=== PATIENT | male | born 1950 | race African-American/Black ===

== ENCOUNTER 2022-01-01 14:24 | Inpatient (IN) ==
[2022-01-01] MEDS ORDERED: ONDANSETRON 4 MG/2 ML VIAL ONE (14:40)
[2022-01-01] MEDS ORDERED: HEPARIN 5,000 UNIT/1 ML VIAL ONE ×2 (14:40→14:47)
[2022-01-01] MEDS ORDERED: MORPHINE 2 MG/1 ML SYRINGE ONE (14:40)
[2022-01-01] MEDS ORDERED: ASPIRIN EC 325 MG TABLET PO ONE (14:40)
[2022-01-01] MEDS ORDERED: fentaNYL 100 MCG/2 ML VIAL ONE (14:45)
[2022-01-01] MEDS ORDERED: HEPARIN/NACL 0.9% 2 UNITS/ML 2,000 UNIT/1,000 ML BAG IV ONE (14:45)
[2022-01-01] MEDS ORDERED: MIDAZOLAM 2 MG/2 ML VIAL ONE (14:45)
[2022-01-01] MEDS ORDERED: HEPARIN 5,000 UNIT/1 ML VIAL IV ONE (14:48)
[2022-01-01] MEDS ORDERED: MORPHINE 2 MG/1 ML SYRINGE IV STA (14:48)
[2022-01-01] MEDS ORDERED: ASPIRIN 325 MG TABLET PO STA (14:48)
[2022-01-01] MEDS ORDERED: ONDANSETRON 4 MG/2 ML VIAL IV STA (14:49)
[2022-01-01 14:56] LABS: Basophils # 0.1 10*3/uL (0.0-0.2); Basophils % 0.6 % (0.0-0.8); Eosinophils # 0.3 10*3/uL (0.0-0.87); Eosinophils % 3.2 % (0.00-10.9); Hematocrit 45.8 VOL% (42.0-52.0); Hemoglobin 14.4 GM/DL (14.0-18.0); Immature Granulocytes % 0.4 %; Immature Granulocytes Absolute 0.04 #; Lymphocytes # 2.3 10*3/uL (1.4-4.0); Lymphocytes % 24.9 % (21.2-54.2); Mean Corpuscular HGB Conc 31.4 GM/DL (32-36); Mean Corpuscular Volume 89.3 FL (87-102); Mean Platelet Volume 12.4 FL (9.6-12.0); Monocytes # 0.6 10*3/uL (0.11-0.8); Monocytes % 6.6 % (1.7-12.7); Neutrophils % 64.3 % (38.7-73.9); Platelet Count 188 T/CUMM (130-400); Red Blood Count 5.13 MC/CUMM (3.8-5.5); Red Cell Distribution Width 14.1 % (9.3-17.3); White Blood Count 9.3 T/CUMM (4-12)
[2022-01-01 15:03] LABS: Partial Thromboplastin Time 25.1 SECS (23.7-32.9)
[2022-01-01] MEDS ORDERED: hydrALAZINE 20 MG/1 ML VIAL ONE (15:11)
[2022-01-01] MEDS ORDERED: TICAGRELOR 90 MG TABLET ONE (15:19)
[2022-01-01 15:23] LABS: Albumin 3.6 G/DL (3.4-5.0); Bilirubin,Total 0.6 MG/DL (0.20-1.00); Calcium 8.9 MG/DL (8.5-10.1); Eosinophils 2 % (0-10); Lymphocytes 21 % (20-55); Osmolality,Calculated 285.3 MOS/KG (273-304); Platelet Estimate Normal; Potassium 4.8 MMOL/L (3.5-5.1); Total Cells Counted 100; Total Protein 7.6 G/DL (6.4-8.2)
[2022-01-01] MEDS ORDERED: ZALEPLON 5 MG CAPSULE PO PRN (15:27)
[2022-01-01] MEDS ORDERED: hydrALAZINE 20 MG/1 ML VIAL IV PRN (15:30)
[2022-01-01] MEDS ORDERED: amLODIPine 5 MG TABLET PO ONE (15:30)
[2022-01-01] MEDS ORDERED: MORPHINE 10 MG/1 ML VIAL ONE (15:36)
[2022-01-01] MEDS ORDERED: NITROGLYCERIN DRIP 50 MG/250 ML BOTTLE IV PRN (15:43)
[2022-01-01] MEDS ORDERED: MORPHINE 2 MG/1 ML SYRINGE IV PRN (15:44)
[2022-01-01] MEDS ORDERED: SODIUM CHLORIDE 0.9% 1,000 ML IV ONE (15:50)
[2022-01-01] MEDS: TICAGRELOR 90 MG TABLET PO SCH (20:30)
[2022-01-01] MEDS: ROSUVASTATIN 20 MG TABLET PO SCH (20:30)
[2022-01-01] MEDS: carvediloL 6.25 MG TABLET PO SCH (20:30)
[2022-01-02 03:42] LABS: Basophils % 0.4 % (0.0-0.8); Eosinophils % 0.5 % (0.00-10.9); Hematocrit 40.7 VOL% (42.0-52.0); Hemoglobin 13.3 GM/DL (14.0-18.0); Immature Granulocytes % 0.4 %; Immature Granulocytes Absolute 0.03 #; Lymphocytes # 1.4 10*3/uL (1.4-4.0); Lymphocytes % 17.5 % (21.2-54.2); Mean Corpuscular HGB Conc 32.7 GM/DL (32-36); Mean Corpuscular Volume 86.8 FL (87-102); Mean Platelet Volume 11.8 FL (9.6-12.0); Monocytes # 0.8 10*3/uL (0.11-0.8); Monocytes % 10.1 % (1.7-12.7); Neutrophils % 71.1 % (38.7-73.9); Platelet Count 152 T/CUMM (130-400); Red Blood Count 4.69 MC/CUMM (3.8-5.5); Red Cell Distribution Width 13.7 % (9.3-17.3)
[2022-01-02 04:16] LABS: Calcium 8.7 MG/DL (8.5-10.1); Osmolality,Calculated 279.4 MOS/KG (273-304); Risk Ratio 2.2; VLDL Cholesterol 11.6 MG/DL
[2022-01-02] MEDS: amLODIPine 10 MG TABLET PO SCH (08:31)
[2022-01-02] MEDS: carvediloL 6.25 MG TABLET PO SCH (08:31)
[2022-01-02] MEDS: TICAGRELOR 90 MG TABLET PO SCH ×2 (08:31→20:31)
[2022-01-02] MEDS: ISOSORBIDE MONONITRATE 30 MG TABLET PO SCH (08:31)
[2022-01-02] MEDS: ASPIRIN EC 81 MG TABLET PO SCH (08:31)
[2022-01-02] MEDS ORDERED: VALSARTAN 160 MG TABLET PO SCH (09:00)
[2022-01-02] MEDS ORDERED: VALSARTAN 80 MG TABLET PO SCH (09:00)
[2022-01-02] MEDS ORDERED: carvediloL 6.25 MG TABLET PO ONE (11:48)
[2022-01-02] MEDS: ROSUVASTATIN 20 MG TABLET PO SCH (20:31)
[2022-01-02] MEDS: carvediloL 12.5 MG TABLET PO SCH (20:31)
[2022-01-03 05:53] LABS: Basophils % 0.4 % (0.0-0.8); Eosinophils # 0.2 10*3/uL (0.0-0.87); Eosinophils % 2.1 % (0.00-10.9); Hematocrit 40.7 VOL% (42.0-52.0); Hemoglobin 13.9 GM/DL (14.0-18.0); Immature Granulocytes % 0.6 %; Immature Granulocytes Absolute 0.04 #; Lymphocytes # 1.3 10*3/uL (1.4-4.0); Lymphocytes % 18.9 % (21.2-54.2); Mean Corpuscular HGB Conc 34.2 GM/DL (32-36); Mean Corpuscular Volume 86.2 FL (87-102); Mean Platelet Volume 11.7 FL (9.6-12.0); Monocytes # 0.8 10*3/uL (0.11-0.8); Monocytes % 11.9 % (1.7-12.7); Neutrophils % 66.1 % (38.7-73.9); Platelet Count 144 T/CUMM (130-400); Red Blood Count 4.72 MC/CUMM (3.8-5.5); Red Cell Distribution Width 13.5 % (9.3-17.3)
[2022-01-03 06:09] LABS: Calcium 8.8 MG/DL (8.5-10.1); Osmolality,Calculated 269.2 MOS/KG (273-304)
[2022-01-03] MEDS: VALSARTAN 160 MG TABLET PO SCH (09:23)
[2022-01-03] MEDS: ISOSORBIDE MONONITRATE 30 MG TABLET PO SCH (09:23)
[2022-01-03] MEDS: DAPAGLIFLOZIN 10 MG TABLET PO SCH (09:23)
[2022-01-03] MEDS: ASPIRIN EC 81 MG TABLET PO SCH (09:23)
[2022-01-03] MEDS: amLODIPine 10 MG TABLET PO SCH (09:24)
[2022-01-03] MEDS: TICAGRELOR 90 MG TABLET PO SCH ×2 (09:24→22:00)
[2022-01-03] MEDS: carvediloL 12.5 MG TABLET PO SCH ×2 (09:24→21:58)
[2022-01-03] MEDS: SPIRONOLACTONE 25 MG TABLET PO SCH (09:24)
[2022-01-03] MEDS: ROSUVASTATIN 20 MG TABLET PO SCH (21:58)
[2022-01-04 05:33] LABS: Basophils % 0.7 % (0.0-0.8); Eosinophils # 0.1 10*3/uL (0.0-0.87); Eosinophils % 2.6 % (0.00-10.9); Hematocrit 41.9 VOL% (42.0-52.0); Hemoglobin 13.8 GM/DL (14.0-18.0); Immature Granulocytes % 0.6 %; Immature Granulocytes Absolute 0.03 #; Lymphocytes # 1.5 10*3/uL (1.4-4.0); Lymphocytes % 27.6 % (21.2-54.2); Mean Corpuscular HGB Conc 32.9 GM/DL (32-36); Mean Corpuscular Volume 85.3 FL (87-102); Mean Platelet Volume 12.4 FL (9.6-12.0); Monocytes # 0.8 10*3/uL (0.11-0.8); Monocytes % 14.8 % (1.7-12.7); Neutrophils % 53.7 % (38.7-73.9); Platelet Count 153 T/CUMM (130-400); Red Blood Count 4.91 MC/CUMM (3.8-5.5); Red Cell Distribution Width 13.3 % (9.3-17.3); White Blood Count 5.4 T/CUMM (4-12)
[2022-01-04 05:58] LABS: Eosinophils 5 % (0-10); Hypochromia 1+; Lymphocytes 31 % (20-55); Microcytosis Slight; Nucleated Red Blood Cells 1 /100 WBC (0-5); Target Cells Few; Total Cells Counted 100
[2022-01-04 05:59] LABS: Platelet Estimate Adequate
[2022-01-04 06:02] LABS: Calcium 9.1 MG/DL (8.5-10.1); Osmolality,Calculated 275.8 MOS/KG (273-304)
[2022-01-04 07:40] VITALS: BP 163/90
[2022-01-04] MEDS: ASPIRIN EC 81 MG TABLET PO SCH (09:10)
[2022-01-04] MEDS: SPIRONOLACTONE 25 MG TABLET PO SCH (09:10)
[2022-01-04] MEDS: ISOSORBIDE MONONITRATE 30 MG TABLET PO SCH (09:11)
[2022-01-04] MEDS: DAPAGLIFLOZIN 10 MG TABLET PO SCH (09:11)
[2022-01-04] MEDS: carvediloL 12.5 MG TABLET PO SCH (09:11)
[2022-01-04] MEDS: amLODIPine 10 MG TABLET PO SCH (09:11)
[2022-01-04] MEDS: TICAGRELOR 90 MG TABLET PO SCH (09:20)
[2022-01-04] MEDS: VALSARTAN 160 MG TABLET PO SCH (09:25)
== END 2022-01-04 10:42 | disposition home or self-care (01) | DRG 250 ==
LOC: N.ED 14:24 → N.CC 15:32 → N.TELEN 01-03 17:55
PROVIDERS: ADMIT Internal Medicine Cardiovascular Disease; ATTEND Internal Medicine Cardiovascular Disease